=== PATIENT | female | born 1990 | race Caucasian/White ===

== ENCOUNTER 2018-05-01 05:50 | Inpatient (IN) | payer BC ==
--- NOTE | 2018-04-30 18:08 | P.HPOB ---
History of Present Illness H&P Date: 04/30/18 Chief Complaint: Induction of labor This is a 27 y.o. female, 1, para 0, with an estimated date of confinement of 05/06/2018, estimated gestational age of 39-2/7 weeks, who presents for induction of labor. She admits to good movement and irregular contractions. course has been uncomplicated. labs: GC/Chlamydia-neg Hepatitis B surface antigen-neg RPR-NR Rubella-immune Blood type-A+ Antibody screen-neg HIV-NR Hemoglobin-12.3 Glucose-80 Quad screen-WNL 1 hr. GTT-139, 3 hr. GTT-wnl Group B streptococcus-positive OB Hx: Mounter Sousaphones Hx:No hx STDs Social Hx: Marrried. 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 Review of Systems Constitutional: Denies chills, Denies fever Eyes: denies blurred vision, denies pain Ears, nose, mouth and throat: Denies headache, Denies sore throat Cardiovascular: Denies chest pain, Denies shortness of breath Respiratory: Denies cough Gastrointestinal: Reports abdominal pain (Irreg. ctxs) Genitourinary: Reports pelvic pain, Reports Musculoskeletal: Reports low back pain Neurological: Denies numbness, Denies weakness Psychiatric: Denies anxiety, Denies depression Past Medical History Past Medical History: No Reported History Additional Past Surgical History / Comment(s): [place] teeth Past Psychological History: No Psychological Hx Reported Smoking Status: Never smoker Past Alcohol Use History: None Reported Past Drug Use History: None Reported - Past Family History Mother Family Medical History: Thyroid Disorder Medications and Allergies Home Medications Medication Instructions Recorded Confirmed Type Pnv,Calcium 72/Iron/Folic Acid 1 each PO 04/30/18 History [ Plus Tablet] Allergies Allergy/AdvReac Type Severity Reaction Status Date / Time No Known Allergies Allergy Verified 04/30/18 18:06 Exam Osteopathic Statement: *. No significant issues noted on an osteopathic struct ural exam other than those noted in the History and Physical/Consult. HEENT: within normal limits Heart: regular rate and rhythm Lungs: clear to auscultation bilaterally Abdomen: soft, Cervix: 1.5 cm/60%/-2 heart tones: 140's by doppler Extremites: Tr. edema Assessment and Plan (1) 39 weeks gestation of Status: Acute Code(s): Z3A.39 - 39 WEEKS GESTATION OF SNOMED Code(s): 98509638 Plan: Proceed with oxytocin induction of labor. Expectant management. Epidural anesthesia if desired.
[2018-05-01 06:18] VITALS: BMI 28.0
[2018-05-01] MEDS ORDERED: OXYTOCIN 10 UNIT/ML 1 ML VIAL IM PRN (06:18)
[2018-05-01] MEDS ORDERED: LIDOCAINE 0.5% (PF) 5 MG/ML (50 ML SDV) SQ PRN (06:18)
[2018-05-01] MEDS ORDERED: AMPICILLIN 2,000 MG in SODIUM CHLORIDE 0.9% 100 ML IVPB STA (06:18)
[2018-05-01] MEDS ORDERED: OXYTOCIN 30 UNITS/500 ML NS 30 UNIT in SALINE 1 500ML.BAG IV SCH (06:18)
[2018-05-01] MEDS ORDERED: CARBOPROST TROMETHAMINE 250 MCG/ML 1 ML AMP IM PRN (06:18)
[2018-05-01] MEDS ORDERED: LIDOCAINE 1% 20 ML VIAL (10MG/ML) FOR IV START INTRADERMA PRN (06:18)
[2018-05-01] MEDS ORDERED: TERBUTALINE 1 MG/ML VIAL SQ PRN (06:18)
[2018-05-01] MEDS ORDERED: METHYLERGONOVINE 0.2 MG/ML 1 ML AMP IM PRN (06:18)
[2018-05-01] MEDS ORDERED: LACTATED RINGERS 1,000 ML IV SCH (06:18)
[2018-05-01 08:24] LABS: Basophils % (A) 0 %; Eosinophils # (A) 0.1 k/uL (0-0.7); Eosinophils % (A) 1 %; HCT 35.1 % (34.0-46.0); HGB 11.8 gm/dL (11.4-16.0); Lymphocytes # (A) 1.4 k/uL (1.0-4.8); Lymphocytes % (A) 14 %; MCH 30.6 pg (25.0-35.0); MCHC 33.5 g/dL (31.0-37.0); MCV 91.5 fL (80.0-100.0); Mean Platelet Volume 8.2; Monocytes # (A) 0.5 k/uL (0-1.0); Monocytes % (A) 5 %; Neutrophils # (A) 7.6 k/uL (1.3-7.7); Neutrophils % (A) 78 %; Platelet Count 172 k/uL (150-450); RBC 3.84 m/uL (3.80-5.40); RDW 13.8 % (11.5-15.5); WBC 9.7 k/uL (3.8-10.6)
[2018-05-01] MEDS ORDERED: AMPICILLIN 1,000 MG in SODIUM CHLORIDE 0.9% 50 ML IVPB SCH (10:30)
[2018-05-01] MEDS ORDERED: BUTORPHANOL 1 MG/ML 1 ML VIAL IV PRN (11:28)
--- NOTE | 2018-05-01 13:18 | P.PROBDLV ---
Vaginal Delivery Note - . Vaginal Delivery Note: The patient progressed to complete fairly rapidly after Stadol was given when she was 2 cm. She felt a strong urge to push and was noted to be at that time. She had clear fluid upon artificial rupture of membranes this morning. She began pushing and 's head came to a crown and then delivered across the perineum followed by the anterior shoulder. Nose and mouth were bulb suctioned. With one remaining push, the infant easily delivered and was placed on mother's abdomen. A viable female was noted with scores of 9 at 1 minute and 9 at 5 minutes and weight of 6 lbs. 3 oz. Placenta delivered shortly thereafter, intact, with a three-vessel cord. Uterus contracted well after oxytocin was given and uterine massage was carried out. Inspection of the perineum revealed bilateral vaginal sulcus second-degree lacerations. These areas were anesthetized with 1% lidocaine and then sutured with 3-0 and 2-0 Vicryl suture in the usual multilayer fashion. Estimated blood loss is approximately 200 mL's. Both mother and are in stable condition.
[2018-05-01] MEDS ORDERED: WITCH HAZEL 1 EACH MED..PAD TOPICAL PRN (13:54)
[2018-05-01] MEDS ORDERED: diphenhydrAMINE 50 MG CAP PO PRN (13:54)
[2018-05-01] MEDS ORDERED: ACETAMINOPHEN TAB 325 MG TAB PO PRN (13:54)
[2018-05-01] MEDS ORDERED: ZOLPIDEM 5 MG TAB PO PRN (13:54)
[2018-05-01] MEDS ORDERED: SIMETHICONE 80 MG CHEWABLE PO PRN (13:54)
[2018-05-01] MEDS ORDERED: HYDROCORTISONE 2.5% RECTAL CREAM 30 GM TUBE RECTAL PRN (13:54)
[2018-05-01] MEDS ORDERED: OXYTOCIN 20 UNITS/1000 ML NS 1,000 ML IV SCH (13:54)
[2018-05-01] MEDS ORDERED: IBUPROFEN 600 MG TAB PO PRN (13:54)
[2018-05-01] MEDS ORDERED: BENZOCAINE/MENTHOL SPRAY 1 GM/SPRAY AEROSOL TOPICAL PRN (13:54)
[2018-05-01] MEDS ORDERED: LANOLIN CREAM 5 GM TUBE TOPICAL PRN (13:54)
[2018-05-01] MEDS ORDERED: diphenhydrAMINE 50 MG/ML 1 ML VIAL IVP PRN ×2 (13:54)
[2018-05-01] MEDS ORDERED: diphenhydrAMINE 25 MG CAP PO PRN (13:54)
[2018-05-01] MEDS ORDERED: DIPH,PERTUS(ACELL)TETVAC-LF 0.5 ML VIAL IM ONE (19:31)
[2018-05-01] MEDS: SENNOSIDES-DOCUSATE SODIUM 1 EACH TAB PO SCH (21:30)
--- NOTE | 2018-05-02 07:03 | P.DS ---
Providers Date of admission: 05/01/18 05:50 Expected date of discharge: 05/02/18 Attending physician: Anna Alegre Primary care physician: Stated None - Discharge Diagnosis(es) (1) 39 weeks gestation of Current Visit: No Status: Acute Hospital Course: This is a 27-year-old female 1 para 0 at 39 and one sevenths weeks who presented for induction of labor. She underwent oxytocin induction of labor and delivered vaginally a viable female infant on 05/01/2018 with scores of 9 at 1 minute and 9 at 5 minutes and weight of 6 lbs. 3 oz. Her course has been uncomplicated. Lochia has been decreasing. Pain is fairly well controlled with ibuprofen. She is breast-feeding without difficulty. Vital signs are stable. Abdomen is soft with fundus firm and nontender. Extremities show negative Homans. Impression is status post vaginal delivery day #1. Plan is to discharge home today. Routine instructions are given. She is advised to follow up in 6 weeks for a check. She is advised to call the office if she has any further questions or concerns prior to her appointment time. She will be given a prescription for ibuprofen and a breast pump. Procedures: Oxytocin induction of labor Spontaneous vaginal delivery of a viable female infant on 05/01/2018 Patient Condition at Discharge: Stable Plan - Discharge Summary New Discharge Prescriptions: New Ibuprofen [Motrin] 600 mg PO Q6HR PRN #60 tab PRN Reason: Mild Pain Or Fever >= 100.5 Continue Pnv,Calcium 72/Iron/Folic Acid [ Plus Tablet] 1 each PO DAILY Discharge Medication List Pnv,Calcium 72/Iron/Folic Acid [ Plus Tablet] 1 each PO DAILY 04/30/18 [History] Ibuprofen [Motrin] 600 mg PO Q6HR PRN #60 tab 05/02/18 [Rx] Follow up Appointment(s)/Referral(s): Anna Alegre DO [Doctor of Osteopathic Medicine] - 6 Weeks Activity/Diet/Wound Care/Special Instructions: Instructions 1. Do not begin any exercise program for 3 weeks. 2. Do not resume sexual relations for 3 weeks or longer if uncomfortable. 3. You may take tub baths or showers at any time. 4. You may use tampons if desired after 3 weeks. 5. Keep the area of episiotomy (stitches) clean and dry. 6. If you are not nursing, wear a good fitting, supportive bra during the day and limit fluid intake for at least 1 week to prevent breast engorgement. 7. Call the office, [phone], within the next week to make appointment for your 6 week checkup if it has not already been made. 8. Report any of the following occurrences to the doctor promptly: a. Heavy, excessive bleeding b. Chills, fever c. Burning or frequency of urination d. Pain or redness and breasts if nursing e. Increasing pain or swelling in episiotomy (stitches). In addition to the above instructions, the following additional should be followed: 1. No heavy lifting or straining (exercising) until after 6 week checkup. 2. Keep abdominal incision clean and dry: You may wear a dressing if more comfortable. 3. Make office appointment for 10 days after going home or as instructed by her doctor. Discharge Disposition: HOME SELF-CARE
[2018-05-02 07:43] LABS: Basophils % (A) 0 %; Eosinophils # (A) 0.1 k/uL (0-0.7); Eosinophils % (A) 1 %; HCT 32.4 % (34.0-46.0); HGB 10.9 gm/dL (11.4-16.0); Lymphocytes # (A) 1.5 k/uL (1.0-4.8); Lymphocytes % (A) 11 %; MCH 30.7 pg (25.0-35.0); MCHC 33.7 g/dL (31.0-37.0); Mean Platelet Volume 9.4; Monocytes # (A) 0.6 k/uL (0-1.0); Monocytes % (A) 4 %; Neutrophils # (A) 11.1 k/uL (1.3-7.7); Neutrophils % (A) 83 %; Platelet Count 168 k/uL (150-450); RBC 3.56 m/uL (3.80-5.40); RDW 13.8 % (11.5-15.5); WBC 13.4 k/uL (3.8-10.6)
[2018-05-02] MEDS: SENNOSIDES-DOCUSATE SODIUM 1 EACH TAB PO SCH (08:38)
[2018-05-02 09:23] VITALS: BP 109/70; TEMP 98.4
[2018-05-02 12:50] VITALS: PULSE 78; RESP 18
== END 2018-05-02 13:30 | disposition home or self-care (01) | DRG 807 ==
LOC: 4FBP 05:50
PROVIDERS: ADMIT Obstetrics & Gynecology; ATTEND Obstetrics & Gynecology
PROC: 10E0XZZ Delivery of Products of Conception, External Approach (ICD-10-PCS; principal; 2018-05-01)
PROC: 0KQM0ZZ Repair Perineum Muscle, Open Approach (ICD-10-PCS; 2018-05-01)
PROC: 10907ZC Drainage of Amniotic Fluid, Therapeutic from Products of Conception, Via Natural or Artificial Opening (ICD-10-PCS; 2018-05-01)
PROC: 3E033VJ Introduction of Other Hormone into Peripheral Vein, Percutaneous Approach (ICD-10-PCS; 2018-05-01)
DX: O99.824 Streptococcus B carrier state complicating childbirth (principal); Z37.0 Single live birth; O70.1 Second degree perineal laceration during delivery; Z3A.39 39 weeks gestation of pregnancy; Z83.49 Family history of other endocrine, nutritional and metabolic diseases
CPT/HCPCS: 85025; 86850; 86900; 86901; 90715

== ENCOUNTER → 2019-07-25 | Outpatient (CLI) | payer OTHER ==
--- NOTE | 2019-07-25 14:40 | US ---
EXAMINATION TYPE: Transabdominal DATE OF EXAM: 07/25/2019 1:38 PM COMPARISON: NONE CLINICAL HISTORY: O46.91 bleeding. Spotting on Tuesday. Patient states she is not bleeding anymore. EXAM PERFORMED: Transabdominal (TA) EXAM MEASUREMENTS: GESTATIONAL AGE / DATING Dates by LMP: ( 9 weeks/2 days) EDC: 02/25/2020 Dates by First Scan: No previous this is first scan Dates by Current Scan for: (8 weeks/5 days) EDC: 02/29/2020 MATERNAL ANATOMY Uterus: 12.9 x 7.4 x 4.7 cm Right Ovary: 2.5 x 1.8 x 1.5 cm Left Ovary: 2.5 x 2.1 x 2.6 cm Post CDS / Adnexa: No free fluid Presence of free fluid: no Presence of corpus luteal cyst: left ovarian hypoechoic lesion with peripheral vascular flow = 1.7 x 1.3 x 1.6 cm Presence of subchorionic bleed: anechoic lesion visualized adjacent to GS= 0.8 x 1.3 x 0.6 cm GESTATION / SURVEY CRL: 2.1 cm (8 weeks/5 days) MSD: seen, not measured Yolk Sac (normal less than 6mm): 3.3 mm Heart Rate: 170 bpm Rhythm: Normal IUP: Viable IUP Date of LMP: 05/21/2019, Beta HcG (if available): Not available at this time Single live intrauterine gestation is confirmed as gestational sac, yolk sac, and pole are pres ent. No free fluid in pelvic cul-de-sac. Possible tiny implantation bleed inferior to gestational sac as noted above. Both ovaries seen without suspicious extraovarian adnexal mass. Rim hypervascular 1.6 cm lesion left ovary likely reflects a corpus luteal cyst. IMPRESSION: Confirmation of single live intrauterine gestation, mean crown-rump length is 2.1 cm rojelio esponding to 8 week 5 day old fetus.
== END | disposition home or self-care (01) ==
LOC: RADUSWWP 12:51
PROVIDERS: ATTEND Obstetrics & Gynecology
DX: O46.91 Antepartum hemorrhage, unspecified, first trimester (principal); Z3A.08 8 weeks gestation of pregnancy
CPT/HCPCS: 76801

== ENCOUNTER 2020-02-19 05:59 | Inpatient (IN) | payer OTHER ==
--- NOTE | 2020-02-18 06:52 | P.HPOB ---
History of Present Illness H&P Date: 02/18/20 Chief Complaint: Induction of labor This is a 29 y.o. female, 2, para 1, with an estimated date of 02/25/2020, estimated gestational age of 39-1/7 weeks, presents for induction of labor. She has irregular contractions and pressure. There was a concern for growth rest riction, but her last ultrasound showed an estimated weight of 6#11oz(51%). Abdominal circumference was still measuring small at 35 6/7 weeks. She has good movement. labs: Hepatitis B surface antigen-neg RPR-NR Rubella-immune Blood type-A+ Antibody screen-neg HIV-NR Hemoglobin-12.1 Random glucose-67 Quad screen-neg 1 hr. GTT-121 GBS-neg OB Hx: . History of 1 vaginal delivery at 39 weeks, female 6#3oz. 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 Review of Systems Constitutional: Denies chills, Denies fever Eyes: denies blurred vision, denies pain Ears, nose, mouth and throat: Denies headache, Denies sore throat Cardiovascular: Denies chest pain, Denies shortness of breath Respiratory: Denies cough Gastrointestinal: Reports abdominal pain (irreg. ctxs) Genitourinary: Reports pelvic pain, Reports , Denies dysuria, Denies hematuria Musculoskeletal: Reports low back pain Musculoskeletal: bilateral: ankle swelling Integumentary: Denies pruritus, Denies rash Neurological: Denies numbness, Denies weakness Psychiatric: Denies anxiety, Denies depression Past Medical History Past Medical History: No Reported History History of Any Multi-Drug Resistant Organisms: None Reported Additional Past Surgical History / Comment(s): [place] teeth Past Anesthesia/Blood Transfusion Reactions: No Reported Reaction Past Psychological History: No Psychological Hx Reported Smoking Status: Never smoker Past Alcohol Use History: None Reported Past Drug Use History: None Reported - Past Family History Mother Family Medical History: Thyroid Disorder Medications and Allergies Home Medications Medication Instructions Recorded Confirmed Type Pnv,Calcium 72/Iron/Folic Acid 1 each PO DAILY 04/30/18 05/01/18 History [ Plus Tablet] Allergies Allergy/AdvReac Type Severity Reaction Status Date / Time No Known Allergies Allergy Verified 05/01/18 06:11 Exam Osteopathic Statement: *. No significant issues noted on an osteopathic structural exam other than those noted in the History and Physical/Consult. HEENT: within normal limits Heart: regular rate and rhythm Lungs: clear to auscultation bilaterally Abdomen: , non-tender Cervix: 1.5 cm/60%/-2 heart tones: 140's by doppler Extremities: neg. Allyssa's Assessment and Plan (1) 39 weeks gestation of Status: Acute Code(s): Z3A.39 - 39 WEEKS GESTATION OF SNOMED Code(s): 77438400 Plan: Proceed with oxytocin induction of labor. Expectant management. Epidural anesthesia if desired.
[2020-02-19] MEDS ORDERED: OXYTOCIN 30 UNITS/500 ML NS 30 UNIT in SALINE 1 500ML.BAG IV SCH (06:22)
[2020-02-19] MEDS ORDERED: LIDOCAINE 1% (10MG/ML) FOR IV START INTRADERMA PRN (06:22)
[2020-02-19] MEDS ORDERED: TERBUTALINE 1 MG/ML VIAL SQ PRN (06:22)
[2020-02-19] MEDS ORDERED: LIDOCAINE 0.5% (PF) 5 MG/ML (50 ML SDV) SQ PRN (06:22)
[2020-02-19] MEDS ORDERED: CARBOPROST TROMETHAMINE 250 MCG/ML 1 ML AMP IM PRN (06:22)
[2020-02-19] MEDS ORDERED: METHYLERGONOVINE 0.2 MG/ML 1 ML AMP IM PRN (06:22)
[2020-02-19] MEDS ORDERED: LACTATED RINGERS 1,000 ML IV SCH (06:22)
[2020-02-19] MEDS ORDERED: AMPICILLIN 2,000 MG in SODIUM CHLORIDE 0.9% 100 ML IVPB STA (06:22)
[2020-02-19] MEDS ORDERED: OXYTOCIN 10 UNIT/ML 1 ML VIAL IM PRN (06:22)
[2020-02-19 06:33] LABS: Basophils # (A) 0.1 k/uL (0-0.2); Basophils % (A) 1 %; Eosinophils # (A) 0.1 k/uL (0-0.7); Eosinophils % (A) 1 %; HCT 36.9 % (34.0-46.0); HGB 12.5 gm/dL (11.4-16.0); Lymphocytes # (A) 1.9 k/uL (1.0-4.8); Lymphocytes % (A) 18 %; MCH 30.5 pg (25.0-35.0); MCHC 33.9 g/dL (31.0-37.0); MCV 89.9 fL (80.0-100.0); Mean Platelet Volume 8.9; Monocytes # (A) 0.5 k/uL (0-1.0); Monocytes % (A) 5 %; Neutrophils # (A) 7.8 k/uL (1.3-7.7); Neutrophils % (A) 73 %; Platelet Count 176 k/uL (150-450); RDW 13.9 % (11.5-15.5); WBC 10.7 k/uL (3.8-10.6)
[2020-02-19] MEDS ORDERED: BUTORPHANOL 1 MG/ML 1 ML VIAL IV PRN (08:24)
[2020-02-19] MEDS ORDERED: AMPICILLIN 1,000 MG in SODIUM CHLORIDE 0.9% 50 ML IVPB SCH (10:22)
[2020-02-19] MEDS ORDERED: BENZOCAINE/MENTHOL SPRAY 1 GM/SPRAY AEROSOL TOPICAL PRN (11:26)
[2020-02-19] MEDS ORDERED: diphenhydrAMINE 50 MG/ML 1 ML VIAL IVP PRN ×2 (11:26)
[2020-02-19] MEDS ORDERED: LANOLIN CREAM 5 GM TUBE TOPICAL PRN (11:26)
[2020-02-19] MEDS ORDERED: diphenhydrAMINE 50 MG CAP PO PRN (11:26)
[2020-02-19] MEDS ORDERED: ZOLPIDEM 5 MG TAB PO PRN (11:26)
[2020-02-19] MEDS ORDERED: OXYTOCIN 20 UNITS/1000 ML NS 1,000 ML IV SCH (11:26)
[2020-02-19] MEDS ORDERED: diphenhydrAMINE 25 MG CAP PO PRN (11:26)
[2020-02-19] MEDS ORDERED: SIMETHICONE 80 MG CHEWABLE PO PRN (11:26)
[2020-02-19] MEDS ORDERED: IBUPROFEN 600 MG TAB PO PRN (11:26)
[2020-02-19] MEDS ORDERED: HYDROCORTISONE 2.5% RECTAL CREAM 30 GM TUBE RECTAL PRN (11:26)
[2020-02-19] MEDS ORDERED: ACETAMINOPHEN TAB 325 MG TAB PO PRN (11:26)
--- NOTE | 2020-02-19 18:09 | P.PROBDLV ---
Vaginal Delivery Note - . Vaginal Delivery Note: The patient progressed to complete dilation after oxytocin induction of labor and antibiotic prophylaxis secondary to history of group B streptococcus. She did undergo artificial rupture membranes with clear fluid noted. She did receive 1 dose of Stadol approximate 40 minutes prior to feeling the urge to push. She was checked and found to be completely dilated. She began pushing and then 's head came to a crown with approximately 1 push. With one further push, the infant's head delivered across the perineum followed by the remainder of the . was placed on mother's abdomen and nose and mouth were bulb suctioned. Cord was clamped and cut and infant was taken to warmer for evaluation. A viable male was noted with scores of 9 at 1 minute and 9 at 5 minutes and weight was 6 lbs. 13 oz. Placenta delivered shortly thereafter, intact, with three-vessel cord. Uterus contracted well with oxytocin given and uterine massage carried out. Her bladder also was drained. Inspection of the perineum revealed no perineal lacerations. Uterus is firm. Estimated blood loss is approximately 50 mL's. Both mother and infant are in stable condition.
[2020-02-19] MEDS ORDERED: INFLUENZA VACCINE (6 MOS+) 60 MCG/0.5 ML SYRINGE IM ONE (18:33)
[2020-02-19] MEDS: SENNOSIDES-DOCUSATE SODIUM 1 EACH TAB PO SCH (20:59)
[2020-02-20 06:04] LABS: Basophils % (A) 0 %; Eosinophils # (A) 0.1 k/uL (0-0.7); Eosinophils % (A) 1 %; HCT 33.5 % (34.0-46.0); HGB 11.2 gm/dL (11.4-16.0); Lymphocytes # (A) 1.9 k/uL (1.0-4.8); Lymphocytes % (A) 15 %; MCH 30.7 pg (25.0-35.0); MCHC 33.5 g/dL (31.0-37.0); MCV 91.7 fL (80.0-100.0); Mean Platelet Volume 9.5; Monocytes # (A) 0.5 k/uL (0-1.0); Monocytes % (A) 4 %; Neutrophils # (A) 9.8 k/uL (1.3-7.7); Neutrophils % (A) 78 %; Platelet Count 176 k/uL (150-450); RBC 3.66 m/uL (3.80-5.40); WBC 12.5 k/uL (3.8-10.6)
--- NOTE | 2020-02-20 06:09 | P.DS ---
Providers Date of admission: 02/19/20 05:59 Expected date of discharge: 02/20/20 Attending physician: Anna Alegre Primary care physician: Stated None - Discharge Diagnosis(es) (1) 39 weeks gestation of Current Visit: No Status: Acute Hospital Course: This is a 29-year-old female 2 para 1 with an estimated date of confinement of 02/25/2020, estimated gestational age of 39 and one sevenths weeks, who presented for induction of labor. She underwent oxytocin induction of labor and delivered vaginally a viable male with scores of 9 at 1 minute and 9 at 5 minutes and infant weight of 6 lbs. 13 oz. Her course has been uncomplicated. Lochia is decreasing. Her pain is been fairly well-controlled however she is having some cramping. She denies the need to take any pain medication. She is breast-feeding. Vital signs are stable. Abdomen is soft with fundus firm and nontender. Extremities show negative Ho sal. Impression is status post vaginal delivery day #1. Plan is to discharge home today. Routine instructions are given. She will be given a prescription for a breast pump. She is advised to call the office if she has any further questions or concerns prior to her 6 week visit. Procedures: Oxytocin induction of labor Spontaneous vaginal delivery of a viable male infant on 02/19/2020 Patient Condition at Discharge: Stable Plan - Discharge Summary Discharge Rx Participant: No New Discharge Prescriptions: No Action Pnv,Calcium 72/Iron/Folic Acid [ Plus Tablet] 1 each PO DAILY Discharge Medication List Pnv,Calcium 72/Iron/Folic Acid [ Plus Tablet] 1 each PO DAILY 04/30/18 [History] Follow up Appointment(s)/Referral(s): Anna Alegre DO [Doctor of Osteopathic Medicine] - 6 Weeks Activity/Diet/Wound Care/Special Instructions: Instructions 1. Do not begin any exercise program for 3 weeks. 2. Do not resume sexual relations for 3 weeks or longer if uncomfortable. 3. You may take tub baths or showers at any time. 4. You may use tampons if desired after 3 weeks. 5. Keep the area of episiotomy (stitches) clean and dry. 6. If you are not nursing, wear a good fitting, supportive bra during the day and limit fluid intake for at least 1 week to prevent breast engorgement. 7. Call the office, [phone], within the next week to make appointment for your 6 week checkup if it has not already been made. 8. Report any of the following occurrences to the doctor promptly: a. Heavy, excessive bleeding b. Chills, fever c. Burning or frequency of urination d. Pain or redness and breasts if nursing e. Increasing pain or swelling in episiotomy (stitches). In addition to the above instructions, the following additional should be followed: 1. No heavy lifting or straining (exercising) until after 6 week checkup. 2. Keep abdominal incision clean and dry: You may wear a dressing if more comfortable. 3. Make office appointment for 10 days after going home or as instructed by her doctor. Discharge Disposition: HOME SELF-CARE
[2020-02-20] MEDS: SENNOSIDES-DOCUSATE SODIUM 1 EACH TAB PO SCH (07:31)
[2020-02-20 09:19] VITALS: BP 107/54; PULSE 78; RESP 16; TEMP 97.5
== END 2020-02-20 12:40 | disposition home or self-care (01) | DRG 807 ==
LOC: 4FBP 05:59
PROVIDERS: ADMIT Obstetrics & Gynecology; ATTEND Obstetrics & Gynecology
PROC: 10E0XZZ Delivery of Products of Conception, External Approach (ICD-10-PCS; principal; 2020-02-19)
PROC: 10907ZC Drainage of Amniotic Fluid, Therapeutic from Products of Conception, Via Natural or Artificial Opening (ICD-10-PCS; principal; 2020-02-19)
PROC: 3E033VJ Introduction of Other Hormone into Peripheral Vein, Percutaneous Approach (ICD-10-PCS; principal; 2020-02-19)
DX: O80 Encounter for full-term uncomplicated delivery (principal); Z37.0 Single live birth; Z3A.39 39 weeks gestation of pregnancy; Z86.19 Personal history of other infectious and parasitic diseases; Z83.49 Family history of other endocrine, nutritional and metabolic diseases
CPT/HCPCS: 85025; 86850; 86900; 86901; 90686